=== PATIENT | male | born 1995 | race Caucasian/White ===

== ENCOUNTER → 2021-03-30 15:53 | Outpatient (CLI) | payer OTHER, SELFPAY ==
--- NOTE | 2021-03-30 16:00 | RAD_ITS ---
STUDY: X-RAY - THORACIC SPINE REASON FOR EXAM: Male, 25 years old. thoracic back pain TECHNIQUE: 3 view(s) of the thoracic spine were obtained. COMPARISON: None. FINDINGS: Normal kyphosis of the thoracic spine. There is scoliosis of thoracic spine with convexity to the right. Mild spondylosis with the mid lower thoracic spine. Wedging of approximately T7 or T8 vertebral body suggestive of compression fracture, exact age indeterminate. Given morphology, this is likely subacute to old. Mild degenerative disease through the mid lower thoracic spine. The soft tissue structures are unremarkable. RAD/Thoracic Spine 3 Views IMPRESSION: Degenerative arthritis more so through the mid lower thoracic spine. Mild compression fracture of T7 or T8, likely old. Remainder of thoracic spine are unremarkable. Electronically Signed: Marcia Valdez MD at 0:39 EDT , Service support ,
== END ==
PROVIDERS: PCP Nurse Practitioner; Referring Provider Nurse Practitioner; Visit Provider Nurse Practitioner
DX: M54.6 Pain in thoracic spine (principal)
CPT/HCPCS: 72072

== ENCOUNTER → 2021-04-12 10:13 | Outpatient (CLI) | payer OTHER, SELFPAY ==
--- NOTE | 2021-04-12 10:21 | NM_ITS ---
CLINICAL: 25-year-old male with radiographically defined thoracic vertebral compression fracture. WHOLE BODY 99m Tc MDP RADIONUCLIDE BONE SCINTIGRAPHY COMPARISON: Plain film radiograph report thoracic spine 03/30/2021 FINDINGS: Following the intravenous administration of approximately 25.0 mCi of 99m Tc MDP, whole body bone images reveal: 1. Subtle increased radiopharmaceutical concentration is defined in the eighth thoracic vertebra posteriorly on the left. 2. The remaining skeletal structures are scintigraphically unremarkable with normal-appearing renal images and urinary bladder activity identified. An increase in uptake is defined in the right medial orbit likely representing periostitis. NM/Bone Scan Whole Body IMPRESSION: 1. The increase in radiopharmaceutical concentration defined in the eighth thoracic vertebra is most consistent with trauma-compression fracture defined on plain film radiography dated 03/30/2021. In patients less than 65 years of age, increased radiopharmaceutical concentration on bone scintigraphy in uncomplicated documented fracture, may take up to 18 months for complete scintigraphic resolution. 2. Facilitated radiotracer distribution defined in the right orbit is most consistent with periostitis. Plain film radiography correlation may be of benefit. Electronically Signed: Orlin Lazaro DO at 7:16 EDT Tel , Service support ,
== END ==
PROVIDERS: PCP Nurse Practitioner; Referring Provider Nurse Practitioner; Visit Provider Nurse Practitioner
DX: S22.060A Wedge compression fracture of T7-T8 vertebra, initial encounter for closed fracture (principal)
CPT/HCPCS: 78306; A9503

== ENCOUNTER → 2021-07-09 11:10 | Outpatient (CLI) | payer OTHER, SELFPAY ==
[2021-07-09 12:23] LABS: Vitamin D,25 Hydroxy 25.8 ng/mL
[2021-07-09 12:26] LABS: Follicle Stimulating Hormone 2.4 mIU/mL; Free T3 2.8 pg/mL (2.18-3.98); Luteinizing Hormone 3.2 mIU/mL; Thyroid Stim Hormone (TSH) 1.24 uIU/mL (0.358-3.74)
[2021-07-13 03:07] LABS: Testosterone Free 10.6 pg/mL (9.3-26.5)
[2021-07-13 08:02] LABS: Adrenocorticotropic Hormone 13.2 pg/mL (7.2-63.3); Growth Hormone 0.2 ng/mL (0.0-10.0)
== END ==
PROVIDERS: PCP Nurse Practitioner; Referring Provider Nurse Practitioner; Visit Provider Nurse Practitioner
DX: E55.9 Vitamin D deficiency, unspecified (principal); R79.89 Other specified abnormal findings of blood chemistry
CPT/HCPCS: 36415; 82024; 82306; 82533; 83001; 83002; 83003; 84146; 84402; 84439; 84443; 84481

== ENCOUNTER 2021-12-10 17:21 | Outpatient (CLI) | payer OTHER, SELFPAY ==
--- NOTE | 2021-12-10 17:21 | MRI_ITS ---
HISTORY: pain, compression fx of unknown cause x 2 years EXAMINATION: MR Spine Thoracic W/O Contrast TECHNIQUE: Multiplanar and multisequence MR images of the thoracic spine. IV Contrast dosage and agent: COMPARISON: Thoracic spine radiograph October 30, 2020, 05 November 2021 . Nuclear medicine bone scan April 12, 2021 FINDINGS: VERTEBRAE: Normal general bone marrow signal. Chronic anterior compression deformity at T8 and T10 with diffuse lower thoracic chronic endplate degenerative change. Mild exaggeration of normal thoracic kyphosis at T8. 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 No aggressive osseous lesion. DISCS: Normal disc height and morphology. No evidence of significant spinal canal and neuroforaminal stenosis. CORD: Unremarkable in signal and morphology. Normal conus medularis. SOFT TISSUES: Unremarkable. MRI/Spine Thoracic (Routine) IMPRESSION: Multilevel lower thoracic endplate degenerative change with chronic mild anterior compression deformities of T8 and 10. No evidence of acute osseous injury. at [id number] Reported and signed by: Jame Navarro MD Electronically Signed: Jame Navarro MD at 3:48 EST Reading Location ID and State: [facility] / [place] Tel , Service support ,
== END 2021-12-10 23:59 | disposition home or self-care (01) ==
LOC: MRI 17:21
PROVIDERS: PCP Nurse Practitioner; Referring Provider Orthopaedic Surgery; Visit Provider Orthopaedic Surgery
DX: S22.000A Wedge compression fracture of unspecified thoracic vertebra, initial encounter for closed fracture (principal)
CPT/HCPCS: 72146